=== PATIENT | female | born 1980 | race Caucasian/White ===

== ENCOUNTER 2018-09-20 07:40 | Inpatient (IN) | payer SELFPAY ==
[2018-09-20] MEDS ORDERED: OXYTOCIN 10 UNIT/ML VIAL ONE ×2 (07:44)
[2018-09-20] MEDS ORDERED: LIDOCAINE 1% INJ-PF (10 MG/ML) 30 ML SDV ONE (08:05)
[2018-09-20] MEDS ORDERED: FENTANYL CITRATE INJ/PF 100 MCG/2 ML AMPUL ONE (08:15)
[2018-09-20] MEDS ORDERED: RINGERS SOLUTION,LACTATED 1,000 ML IV ONE (08:36)
[2018-09-20] MEDS ORDERED: RINGERS SOLUTION,LACTATED 1,000 ML IV PRN (08:36)
[2018-09-20] MEDS ORDERED: OXYTOCIN/NORMAL SALINE 20 UNIT/1,000 ML RTUINJ IV PRN (08:50)
[2018-09-20] MEDS ORDERED: MEASLES,MUMPS&RUBELLA VACC/PF 0.5 ML VIAL SUBCUT PRN (08:50)
[2018-09-20] MEDS ORDERED: ZOLPIDEM TARTRATE 5 MG TABLET PO PRN (08:50)
[2018-09-20] MEDS ORDERED: DIBUCAINE 1% OINTMENT 28 GM TP PRN (08:50)
[2018-09-20] MEDS ORDERED: BENZOCAINE/MENTHOL AEROSOL SPRAY 56 ML TOP PRN (08:50)
[2018-09-20] MEDS ORDERED: DIPH/PERTUSS(ACELL)/TETANUS VAC/PF 0.5 ML SYR (>=10YO) IM PRN (08:50)
[2018-09-20] MEDS ORDERED: IBUPROFEN 800 MG TABLET ONE ×2 (09:41→10:08)
[2018-09-20] MEDS ORDERED: CEFAZOLIN 2 GM/D5W RTU 0 GM/0 ML RTUPB IV ONE (09:42)
[2018-09-20] MEDS ORDERED: AMPICILLIN SOD INJ 2 GM VIAL ONE (09:43)
[2018-09-20] MEDS ORDERED: AMPICILLIN SOD/SULBACTAM 1.5 GM VIAL IV SCH (10:00)
[2018-09-20 10:01] LABS: HEMATOCRIT 25.3 % (36.0-47.0); HEMOGLOBIN 8.4 g/dL (12.0-15.5); MEAN CORPUSCULAR HEMOGLOBIN 25.2 pg (27.0-33.4); MEAN CORPUSCULAR HGB CONC 33.3 g/dL (32.0-36.0); MEAN CORPUSCULAR VOLUME 76 fl (80-97); PLATELET COUNT 225 10^3/uL (150-450); RED BLOOD COUNT 3.35 10^6/uL (3.72-5.28); RED CELL DISTRIBUTION WIDTH 15.5 % (11.5-14.0); WHITE BLOOD COUNT 19.5 10^3/uL (4.0-10.5)
[2018-09-20 10:21] LABS: APPEARANCE,URINE SLIGHTLY-CLOUDY; BILIRUBIN,URINE NEGATIVE (NEGATIVE); COLOR,URINE YELLOW; GLUCOSE, URINE >=500 mg/dL (NEGATIVE); KETONES,URINE NEGATIVE (NEGATIVE); LEUKOCYTE ESTERASE,URINE TRACE (NEGATIVE); NITRITE,URINE NEGATIVE (NEGATIVE); PROTEIN,URINE NEGATIVE (NEGATIVE); URIC ACID CRYSTALS,URINE FEW /HPF; URINE SPECIFIC GRAVITY 1.012; UROBILINOGEN,URINE NEGATIVE mg/dL (<2.0)
[2018-09-20 10:28] LABS: ABSOLUTE LYMPHOCYTES# (MANUAL) 2.5 10^3/uL (0.5-4.7); ABSOLUTE MONOCYTES # (MANUAL) 0.8 10^3/uL (0.1-1.4); ABSOLUTE NEUTROPHILS# (MANUAL) 16.2 10^3/uL (1.7-8.2); BASOPHILS % (MANUAL) 0 % (0-2); EOSINOPHILS % (MANUAL) 0 % (0-6); LYMPHOCYTES % (MANUAL) 13 % (13-45); MONOCYTES % (MANUAL) 4 % (3-13); SEGMENTED NEUTROPHILS % (MAN) 83 % (42-78); TOTAL CELLS COUNTED 100
[2018-09-20 10:34] LABS: ANISOCYTOSIS SLIGHT; HYPOCHROMASIA SLIGHT; OVALOCYTES SLIGHT; PLATELET COMMENT ADEQUATE
[2018-09-20 10:34] LABS: URINE BARBITURATES SCREEN NEGATIVE; URINE BENZODIAZEPINES SCREEN NEGATIVE; URINE COCAINE SCREEN NEGATIVE; URINE METHADONE SCREEN NEGATIVE; URINE PHENCYCLIDINE SCREEN NEGATIVE
--- NOTE | 2018-09-20 10:40 | Warning Signs in Babies ---
VOD Warning Signs Datetime Report Generated by [facility]: 09/20/2018 10:40 VOD#608 -Warning Signs in Babies: Needs to be viewed. (09/20/2018 08:31:Irina Wills RN)
[2018-09-20 10:46] LABS: URINE MARIJUANA (THC) SCREEN UNCONFIRMED POSITIVE
--- NOTE | 2018-09-20 10:50 | Delivery Summary ---
Del Sum A-C Datetime Report Generated by CPN: 09/20/2018 10:50 DELIVERY PERSONNEL DELIVERY PERSONNEL: [id number] Delivery Doctor:: Ruby Landaverde MD Labor and Delivery Nurse:: Irina Wills RNwire hanger Nurse:: Lorin Herrera RN Bleach Boiler Packer:: Peri Lakhani RN Nursery Nurse:: Ritika Lacey RN Nursery Nurse:: Francesca Vazquez RN Additional Personnel: : Jeaneth Hardy RN; Anastasia Rios RN MATERNAL INFORMATION Delivery Anesthesia: None Medications After Delivery: Pitocin Drip 20 Units/1000ml NSS Estimated Blood Loss (ml): 500 ml Maternal Complications: Precipitous Labor (<3hrs) Other Maternal Complications: h/o section x 2; no care; drug addiction Provider Comments: Pt arrived at the ED in labor and complete. She informed personnel that she has had (3) C/S. OB emergency called at approx [phone]. I arrived at 0800. Fetus at +3 station. All trying to calm the pt. Pt pushed (2) sets and there was precipitous delivery of a viable female @ 0805 with an RADHA presentation. APGARS 8, 9; no lacs. LABOR SUMMARY EDC: 10/15/2018 00:00 No. Babies in Womb: 1 Attempted: No Labor Anesthesia: None LABOR INFORMATION Reason for Induction: Not Applicable Complete Dilatation: 09/20/2018 07:35 Group B Beta Strep: unknown MEMBRANES Membranes Rupture Method: Spontaneous Rupture of Membranes: 09/20/2018 07:35 Length of Rupture (hr): 0.50 Amniotic Fluid Color: Clear Amniotic Fluid Amount: Moderate STAGES OF LABOR Stage 2 hr: 0 Stage 2 min: 30 Stage 3 hr: 0 Stage 3 min: 10 VAGINAL DELIVERY Episiotomy: None Laceration #1: None Laceration Extension #1: N/A Laceration Repair: Not Applicable Sponge Count Correct: N/A CSECTION DELIVERY Primary Indication: N/A Secondary Indication: N/A CSection Incision: N/A BABY A INFORMATION Delivery Date/Time: 09/20/2018 08:05 Method of Delivery: Vaginal Born in Route : No : Successful Forceps: N/A Vacuum Extraction: N/A Shoulder Dystocia : No PRESENTATION/POSITION BABY A Presentation: Cephalic Cephalic Presentation: Vertex Breech Presentation: N/A PLACENTA INFORMATION BABY A Placenta Delivery Time : 09/20/2018 08:15 Placenta Method of Delivery: Spontaneous Placenta Status: Delivered SCORES BABY A Heart Rate 1 min: >100 bpm Resp Effort 1 min: Good Cry Reflex Irritability 1 min: Cough or Sneeze or Pulls Away Muscle Tone 1 min: Some Flexion of Extremities Color 1 min: Body [place], Extremities Blue Resuscitation Effort 1 min: Tactile Stimulation SCORE 1 MIN: 8 Heart Rate 5 min: >100 bpm Resp Effort 5 min: Good Cry Reflex Irritability 5 min: Cough or Sneeze or Pulls Away Muscle Tone 5 min: Active Motion Color 5 min: Body [place], Extremities Blue Resuscitation Effort 5 min: Tactile Stimulation SCORE 5 MIN: 9 INFANT INFORMATION BABY A Gestational Age at Delivery: 36.3 Gestational Status: Late - 34- 36.6 Weeks Infant Outcome : Liveborn Condition : Stable Sex: Female IDENTIFICATION BABY A Verification Date/Time: 09/20/2018 10:12 ID Band Number: [id number] Mother's Name Verified: Yes RN Verifying Infant: , RN Additional Verifying Personnel: ArmenMeyer, [employer] REPRESENTATIVE WEIGHT/LENGTH BABY A Birthweight (gm): 3110 Weight (lb): 6 Infant Weight (oz): 14 Length (in): 19.00 Infant Length (cm): 48.26 CORD INFORMATION BABY A No. Cord Vessels: 3 Nuchal Cord : N/A Cord Blood Taken: Yes-For Eval (Mom's Blood Type - or O+) ASSESSMENT BABY A Skin to Skin: No SIGNATURES Signature: with User ID: [email or web address]
[2018-09-20 11:04] LABS: RUBELLA INTERPRETATION POSITIVE
[2018-09-20 11:50] LABS: CHLAM PCR NOT DETECTED (NOT DETECT); GON PCR NOT DETECTED (NOT DETECT)
[2018-09-20] MEDS: DOCUSATE SODIUM 100 MG CAPSULE PO SCH ×2 (13:24→18:45)
[2018-09-20] MEDS: PRENATAL VITAMIN W DHA CAPSULE PO SCH (13:25)
[2018-09-20] MEDS: SENNOSIDES/DOCUSATE 8.6-50 MG 1 EACH TABLET PO SCH (13:25)
[2018-09-20] MEDS: FERROUS SULFATE 325 MG TABLET PO SCH ×2 (13:25→18:45)
[2018-09-20] MEDS: IBUPROFEN 800 MG TABLET PO SCH ×2 (14:34→22:10)
[2018-09-20] MEDS: AMPICILLIN SODIUM/SULBACTAM NA 1.5 GM in NORMAL SALINE 50 ML IV SCH ×3 (14:36→22:10)
[2018-09-21] MEDS: AMPICILLIN SODIUM/SULBACTAM NA 1.5 GM in NORMAL SALINE 50 ML IV SCH ×4 (02:17→15:08)
[2018-09-21] MEDS: IBUPROFEN 800 MG TABLET PO SCH ×3 (06:12→22:18)
[2018-09-21 07:06] LABS: HEPATITS B SURFACE ANTIGEN Negative (Negative)
--- NOTE | 2018-09-21 08:34 | PDOC PROGRESS REPORT ---
Subjective-OB Progress Note for:: 09/21/18 Physical Exam (OB) Vital Signs: Temp Pulse Resp BP Pulse Ox 98.1 F 102 H 18 151/87 H 100 09/20/18 19:54 09/20/18 19:54 09/20/18 19:54 09/20/18 19:54 09/20/18 19:54 Intake & Output 09/20/18 09/21/18 09/22/18 06:59 06:59 06:59 Intake Total 925 550 Balance 925 550 Weight 87 kg - General General Appearance: Alert - PIH/Pre-Eclampsia Clonus: Negative Headache: Absent Epigastric Pain: No Visual Changes: No - Lochia Lochia Amount: Scant < 10 ml Lochia Color: Rubra/Red - Abdomen Description: Soft, Round Hernia Present: No Bowel Sounds: Normoactive Flatus Presence: Present Stool: Yes Fundal Description: Firm, Midline Fundal Height: u/u - u/2 - Respiratory Breath sounds: Clear - Extremities Calf: Normal Objective-Diagnostic Laboratory: 09/20/18 09/20/18 09/20/18 09:21 09:21 09:21 WBC 19.5 H RBC 3.35 L Hgb 8.4 L Hct 25.3 L MCV 76 L MCH 25.2 L MCHC 33.3 RDW 15.5 H Plt Count 225 Seg Neutrophils % Not Reportable Lymphocytes % Not Reportable Monocytes % Not Reportable Eosinophils % Not Reportable Basophils % Not Reportable Absolute Neutrophils Not Reportable Absolute Lymphocytes Not Reportable Absolute Monocytes Not Reportable Absolute Eosinophils Not Reportable Absolute Basophils Not Reportable TSH 0.57 Urine Color Urine Appearance Urine pH Ur Specific [place] Urine Protein Urine Glucose (UA) Urine Ketones Urine Blood Urine Nitrite Ur Leukocyte Esterase Urine WBC (Auto) Urine RBC (Auto) Blood Type O POSITIVE Antibody Screen NEGATIVE 09/20/18 09:55 WBC RBC Hgb Hct MCV MCH MCHC RDW Plt Count Seg Neutrophils % Lymphocytes % Monocytes % Eosinophils % Basophils % Absolute Neutrophils Absolute Lymphocytes Absolute Monocytes Absolute Eosinophils Absolute Basophils TSH Urine Color YELLOW Urine Appearance SLIGHTLY-CLOUDY Urine pH 6.0 Ur Specific [place] 1.012 Urine Protein NEGATIVE Urine Glucose (UA) >=500 H Urine Ketones NEGATIVE Urine Blood LARGE H Urine Nitrite NEGATIVE Ur Leukocyte Esterase TRACE H Urine WBC (Auto) 5 Urine RBC (Auto) >182 Blood Type Antibody Screen Assessment and Plan(PN) Plan:: routine PP care - Time Spent with Patient Time with patient: Less than 15 minutes - Disposition Anticipated Discharge: Home Within: within 24 hours
[2018-09-21 08:46] LABS: HEMATOCRIT 22.9 % (36.0-47.0); MEAN CORPUSCULAR HEMOGLOBIN 25.2 pg (27.0-33.4); MEAN CORPUSCULAR HGB CONC 33.1 g/dL (32.0-36.0); MEAN CORPUSCULAR VOLUME 76 fl (80-97); PLATELET COUNT 269 10^3/uL (150-450); RED CELL DISTRIBUTION WIDTH 15.5 % (11.5-14.0)
[2018-09-21 08:59] LABS: HEMOGLOBIN 7.6 g/dL (12.0-15.5)
[2018-09-21] MEDS: SENNOSIDES/DOCUSATE 8.6-50 MG 1 EACH TABLET PO SCH (09:56)
[2018-09-21] MEDS: FERROUS SULFATE 325 MG TABLET PO SCH ×2 (09:56→17:58)
[2018-09-21] MEDS: DOCUSATE SODIUM 100 MG CAPSULE PO SCH ×2 (09:56→17:58)
[2018-09-21] MEDS: PRENATAL VITAMIN W DHA CAPSULE PO SCH (09:56)
[2018-09-21 10:39] LABS: HEPATITIS C VIRUS AB <0.1 s/co ratio (0.0-0.9)
[2018-09-21] MEDS ORDERED: HYDROXYZINE PAMOATE 50 MG CAPSULE PO PRN (16:44)
[2018-09-22] MEDS: IBUPROFEN 800 MG TABLET PO SCH ×2 (05:47→16:07)
[2018-09-22] MEDS ORDERED: SERTRALINE HCL 50 MG TABLET PO SCH (10:00)
[2018-09-22] MEDS: SENNOSIDES/DOCUSATE 8.6-50 MG 1 EACH TABLET PO SCH (10:34)
[2018-09-22] MEDS: PRENATAL VITAMIN W DHA CAPSULE PO SCH (10:34)
[2018-09-22] MEDS: DOCUSATE SODIUM 100 MG CAPSULE PO SCH ×2 (10:34→18:10)
[2018-09-22] MEDS: FERROUS SULFATE 325 MG TABLET PO SCH ×2 (10:34→18:10)
[2018-09-22 11:49] VITALS: BP 136/64
[2018-09-22 12:20] LABS: HEMATOCRIT 25.9 % (36.0-47.0); HEMOGLOBIN 8.4 g/dL (12.0-15.5); MEAN CORPUSCULAR HEMOGLOBIN 25.2 pg (27.0-33.4); MEAN CORPUSCULAR HGB CONC 32.4 g/dL (32.0-36.0); MEAN CORPUSCULAR VOLUME 78 fl (80-97); PLATELET COUNT 365 10^3/uL (150-450); RED BLOOD COUNT 3.33 10^6/uL (3.72-5.28); RED CELL DISTRIBUTION WIDTH 15.9 % (11.5-14.0); WHITE BLOOD COUNT 15.3 10^3/uL (4.0-10.5)
[2018-09-22 13:09] LABS: ABSOLUTE LYMPHOCYTES# (MANUAL) 2.1 10^3/uL (0.5-4.7); ABSOLUTE MONOCYTES # (MANUAL) 0.2 10^3/uL (0.1-1.4); ABSOLUTE NEUTROPHILS# (MANUAL) 12.7 10^3/uL (1.7-8.2); BAND NEUTROPHILS % (MANUAL) 2 % (3-5); BASOPHILS % (MANUAL) 0 % (0-2); EOSINOPHILS % (MANUAL) 2 % (0-6); HYPOCHROMASIA SLIGHT; LYMPHOCYTES % (MANUAL) 14 % (13-45); MONOCYTES % (MANUAL) 1 % (3-13); PLATELET COMMENT ADEQUATE; POLYCHROMASIA 2+; SEGMENTED NEUTROPHILS % (MAN) 81 % (42-78); TOTAL CELLS COUNTED 100; TOXIC GRANULATION 1+
--- NOTE | 2018-09-22 13:14 | PDOC DISCHARGE SUMMARY ---
Final Diagnosis Discharge Date: 09/22/18 - Final Diagnosis (1) Drug abuse during Is this a current diagnosis for this admission?: Yes (2) No care in current Is this a current diagnosis for this admission?: Yes (3) , delivered Is this a current diagnosis for this admission?: Yes Discharge Data - Discharge Medication Home Medications: No Home Medications 09/20/18 Reason(s) for Admission: Onset of Labor Procedures: NST Intrapartum Procedure(s): Spontaneous Vaginal Delivery - Diagnosis Test Laboratory: Temp Pulse Resp BP Pulse Ox 97.6 F 79 17 136/64 H 97 09/22/18 11:15 09/22/18 11:15 09/22/18 11:15 09/22/18 11:15 09/22/18 11:15 09/20/18 09/20/18 09/21/18 09:21 09:55 08:14 RBC 3.35 L 3.00 L Hgb 8.4 L 7.6 L Hct 25.3 L 22.9 L Urine Opiates Screen UNCONFIRMED POSITIVE 09/22/18 11:49 RBC 3.33 L Hgb 8.4 L Hct 25.9 L Urine Opiates Screen - Discharge information/Instructions Discharge Activity: Balance Activity w/Rest, Pelvic Rest Discharge Diet: Regular Disposition: HOME, SELF-CARE Follow up with: [facility] in: 3, 4, Days
--- NOTE | 2018-09-22 13:35 | PDOC PROGRESS REPORT ---
Subjective-OB Progress Note for:: 09/22/18 Subjective: Pt wants to go home today. Tearful, states she feels fine and is going to have higher blood pressure if she has to stay here. She says she is not from here and wants to go back to [place] today. Reports history of intermittent blood pressure issues. Bleeding normal, voiding well, no concerns today. Physical Exam (OB) Vital Signs: Temp Pulse Resp BP Pulse Ox 97.6 F 79 17 136/64 H 97 09/22/18 11:15 09/22/18 11:15 09/22/18 11:15 09/22/18 11:15 09/22/18 11:15 Intake & Output 09/21/18 09/22/18 09/23/18 06:59 06:59 06:59 Intake Total 925 840 Balance 925 840 Weight 87 kg - PIH/Pre-Eclampsia DTR's: 1 + Clonus: Negative Headache: Absent Epigastric Pain: No Visual Changes: No - Lochia Lochia Amount: Scant < 10 ml Lochia Color: Rubra/Red - Abdomen Description: Soft, Round Hernia Present: No Fundal Description: Firm, Midline Fundal Height: u/u - u/2 Objective-Diagnostic Laboratory: 09/22/18 11:49 09/22/18 11:49 WBC 15.3 H RBC 3.33 L Hgb 8.4 L Hct 25.9 L MCV 78 L MCH 25.2 L MCHC 32.4 RDW 15.9 H Plt Count 365 Seg Neutrophils % Not Reportable Lymphocytes % Not Reportable Monocytes % Not Reportable Eosinophils % Not Reportable Basophils % Not Reportable Absolute Neutrophils Not Reportable Absolute Lymphocytes Not Reportable Absolute Monocytes Not Reportable Absolute Eosinophils Not Reportable Absolute Basophils Not Reportable Assessment and Plan(PN) - Assessment and Plan (1) Drug abuse during Is this a current diagnosis for this admission?: Yes (2) No care in current Qualifiers: Trimester: third trimester Qualified Code(s): O09.33 - Supervision of with insufficient care, third trimester Is this a current diagnosis for this admission?: Yes (3) , delivered Is this a current diagnosis for this admission?: Yes Plan:: Pt instruced to follow up with her doctor in [place] early next week in the next 3-4 days for BP check. - Time Spent with Patient Time with patient: Less than 15 minutes Medications reviewed and adjusted accordingly: Yes - Disposition Anticipated Discharge: Home Within: within 24 hours
[2018-09-23] MEDS ORDERED: NIFEDIPINE 30 MG TAB.ER.24 PO SCH (10:00)
[2018-09-25 13:42] LABS: AMPHETAMINE CONFIRMATION UR Positive (.)
--- NOTE | 2018-09-30 14:59 | PDOC H&P ---
History of Present Illness Admission Date/PCP: 09/20/18 08:24 This 38 year old with a probable full term presented to the ED c/o abdominal pain. She knew that she was and received nnps care. She admitted to using drugs during the . She informed the staff that she has had (3) C/S. At this point her cervix was complete. History of Present Illness: GABRIEL COLON is a 38 year old female Past Surgical History Past Surgical History: Reports: Section - X3 Social History Information Source: Patient Lives with: Alone Smoking Status: Current Every Day Smoker Hx Recreational Drug Use: Yes Drugs: Cocaine, Marijuana Hx Prescription Drug Abuse: No Family History Parental Family History Reviewed: No - emergency delivery Children Family History Reviewed: NA Sibling(s) Family History Reviewed.: NA Medication/Allergy Home Medications: Ferrous Sulfate [Feosol 325 mg Tablet] 325 mg PO BID #60 tablet 09/22/18 Ibuprofen [Motrin 800 mg Tablet] 800 mg PO Q8HP PRN #60 tablet 09/22/18 Nifedipine [Procardia XL 30 mg Tablet] 30 mg PO DAILY #30 tab.er.24 09/22/18 Vit/Dha [ Multi + Dha Capsule] 1 cap PO DAILY #30 capsule 09/22 Allergies/Adverse Reactions: cefaclor [From [facility]] Allergy (Mild, Verified 09/20/18 09:25) Physical Exam - Physical Exam Vital Signs: Temp Pulse Resp BP Pulse Ox 97.6 F 79 17 136/64 H 97 09/22/18 15:00 09/22/18 15:00 09/22/18 15:00 09/22/18 11:15 09/22/18 15:00 General appearance: PRESENT: disheveled, severe distress - Labor Respiratory exam: PRESENT: clear to auscultation nunu Cardiovascular exam: PRESENT: RRR, tachycardia GI/Abdominal exam: PRESENT: normal bowel sounds, soft Extremities exam: ABSENT: calf tenderness, clubbing, full ROM, joint swelling, pedal edema, tenderness, +1 edema, +2 edema, other Neurological exam: PRESENT: alert, oriented to time - Obstetrical Exam Dilation (cm): 10 Effacement (%): 100 Station: +3 - Result Laboratory Results: 09/22/18 11:49 Assessment & Plan - Diagnosis (1) Drug abuse during Is this a current diagnosis for this admission?: Yes (2) No care in current Qualifiers: Trimester: third trimester Qualified Code(s): O09.33 - Supervision of with insufficient care, third trimester Is this a current diagnosis for this admission?: Yes (3) , delivered Is this a current diagnosis for this admission?: Yes - Time Time Spent: 30 to 50 Minutes Critical Time spent with patient: 25-34 minutes - delivering baby in the ED Anticipated discharge: Home Within: within 48 hours - Plan Summary Plan Summary: Plan: 1. Delivery, vaginally
== END 2018-09-22 18:53 | disposition home or self-care (01) | DRG 805 ==
LOC: ER 07:40 → EDSTATUS 07:47 → LR 08:24 → 2S 11:22
PROVIDERS: ADMIT Obstetrics & Gynecology; ATTEND Obstetrics & Gynecology
PROC: 10E0XZZ Delivery of Products of Conception, External Approach (ICD-10-PCS; principal; 2018-09-20)
PROC: 4A1HXCZ Monitoring of Products of Conception, Cardiac Rate, External Approach (ICD-10-PCS; 2018-09-20)
DX: O99.324 Drug use complicating childbirth (principal); O60.14X0 Preterm labor third trimester with preterm delivery third trimester, not applicable or unspecified; Z37.0 Single live birth; O62.3 Precipitate labor; F11.10 Opioid abuse, uncomplicated; F12.10 Cannabis abuse, uncomplicated; O99.334 Smoking (tobacco) complicating childbirth; F17.200 Nicotine dependence, unspecified, uncomplicated; O34.219 Maternal care for unspecified type scar from previous cesarean delivery; Z3A.36 36 weeks gestation of pregnancy
CPT/HCPCS: 36415; 80307; 80349; 80361; 81001; 84443; 85025; 85027; 86592; 86701; 86762; 86787; 86803; 86804; 86850; 86900; 86901; 87340; 87491; 87591; 88307; G0480; J0290; J0295; J0690; J3490